=== PATIENT | male | born 1995 | race African-American/Black ===

== ENCOUNTER 2018-04-12 16:32 | Emergency (ER) | payer SELFPAY ==
[2018-04-12 16:54] LABS: ALANINE AMINOTRANSFERASE 19 U/L (21-72); ALBUMIN 5.2 gm/dL (3.5-5.0); ALKALINE PHOSPHATASE 69 U/L (50-136); ANION GAP 41 mmol/L (7-16); AST,SGOT 37 U/L (15-37); BILIRUBIN,TOTAL 0.5 mg/dL (0.0-1.0); BLOOD UREA NITROGEN 9 mg/dL (9-20); CALCIUM 9.5 mg/dL (8.4-10.2); CHLORIDE 99 mmol/L (98-107); CREATININE, serum 1.59 mg/dL (0.66-1.25); GLUCOSE 92 mg/dL (74-106); POTASSIUM 3.9 mmol/L (3.4-5.0); SODIUM 146 mmol/L (137-145); TOTAL PROTEIN 9.4 gm/dL (6.4-8.2)
[2018-04-12 16:55] LABS: ALCOHOL(ethanol),MEDICAL < 10 mg/dL; CARBON DIOXIDE 6 mmol/L (22-30)
[2018-04-12 16:57] LABS: HEMATOCRIT 52.6 % (42.0-52.0); HEMOGLOBIN 17.4 g/dl (13.5-18.0); MEAN CELL VOLUME 88 fl (80.0-100.0); MEAN CORPUSCULAR HEMOGLOBIN 29 pg (27.0-31.0); MEAN CORPUSCULAR HGB CONC 33 g/dl (33.0-37.0); MEAN PLATELET VOLUME 11.7 fl (7.4-10.4); PLATELET COUNT 220 K/mm3 (130-400); PROTHROMBIN TIME 11.8 SECONDS (9.7-12.8); RED BLOOD COUNT 5.96 M/mm3 (4.20-5.60); REDCELL DISTRIBUTION WIDTH-CV 15.6 % (11.5-14.5)
[2018-04-12 17:01] VITALS: BP 174/84
[2018-04-12 17:15] LABS: BAND 6 % (0-10); EOSINOPHIL 1 % (0-4); LYMPHOCYTE 66 % (20.0-51.0); NEUTROPHILS 23 % (42.0-75.2)
[2018-04-12 20:08] VITALS: PULSE 110; TEMP 97.6
== END 2018-04-12 17:18 | disposition short-term general hospital (02) ==
LOC: EDBD 16:32 → COL.ER 16:32
PROVIDERS: Emergency Medicine
DX: T75.1XXA Unspecified effects of drowning and nonfatal submersion, initial encounter (principal)
CPT/HCPCS: J0330; J2250; J3010

== ENCOUNTER → 2018-04-12 | Emergency (ER) | payer SELFPAY | LOC: COL.ER | DX: Z72.9 Problem related to lifestyle, unspecified (principal) ==